=== PATIENT | female | born 2000 | race Two or more races ===

== ENCOUNTER 2019-12-05 12:47 | Emergency (ER) | payer OTHER ==
[2019-12-05] MEDS ORDERED: PREDNISONE 20 MG TABLET PO ONE (14:34)
[2019-12-05] MEDS ORDERED: IPRATROPIUM/ALBUTEROL 0.5-2.5 MG/3 ML AMPUL NEB ONE (14:34)
[2019-12-05] MEDS ORDERED: LIDOCAINE 1% INJ-PF (10 MG/ML) 30 ML SDV INJ ONE (14:34)
[2019-12-05] MEDS ORDERED: BENZONATATE 100 MG CAPSULE PO ONE (14:35)
[2019-12-05 15:06] LABS: ABSOLUTE EOSINOPHILS # (AUTO) 0.3 10^3/uL (0.0-0.6); ABSOLUTE LYMPHOCYTES (AUTO) 1.8 10^3/uL (0.5-4.7); ABSOLUTE MONOCYTES (AUTO) 0.5 10^3/uL (0.1-1.4); ABSOLUTE NEUT (AUTO) 3.8 10^3/uL (1.7-8.2); BASOPHILS % (AUTO) 0.7 % (0-2); EOSINOPHILS % (AUTO) 3.9 % (0-6); HEMATOCRIT 38.5 % (36.0-47.0); HEMOGLOBIN 13.3 g/dL (12.0-15.5); LYMPHOCYTES % (AUTO) 27.7 % (13-45); MEAN CORPUSCULAR HEMOGLOBIN 29.6 pg (27.0-33.4); MEAN CORPUSCULAR HGB CONC 34.5 g/dL (32.0-36.0); MEAN CORPUSCULAR VOLUME 86 fl (80-97); MONOCYTES % (AUTO) 8.1 % (3-13); PLATELET COUNT 249 10^3/uL (150-450); RED BLOOD COUNT 4.49 10^6/uL (3.72-5.28); RED CELL DISTRIBUTION WIDTH 13.3 % (11.5-14.0); SEGMENTED NEUTROPHILS % (AUTO) 59.6 % (42-78); TOTAL CELLS COUNTED % (AUTO) 100 %; WHITE BLOOD COUNT 6.5 10^3/uL (4.0-10.5)
--- NOTE | 2019-12-05 15:23 | RADIOLOGY REPORT (SQ) ---
EXAM DESCRIPTION: CHEST SINGLE VIEW IMAGES COMPLETED DATE/TIME: 12/05/2019 3:06 pm REASON FOR STUDY: Uncontrollable cough, wheezing COMPARISON: None. NUMBER OF VIEWS: One view. TECHNIQUE: Single frontal radiographic view of the chest acquired. LIMITATIONS: None. FINDINGS: LUNGS AND PLEURA: No opacities, masses or pneumothorax. No pleural effusion. MEDIASTINUM AND HILAR STRUCTURES: No masses. Contour normal. HEART AND VASCULAR STRUCTURES: Heart normal in size. Normal vasculature. BONES: No acute findings. HARDWARE: None in the chest. OTHER: No other significant finding. IMPRESSION: NO SIGNIFICANT RADIOGRAPHIC FINDING IN THE CHEST. TECHNICAL DOCUMENTATION: JOB ID: [id number] 2010 [employer]- All Rights Reserved Reading location - IP/workstation name: [email or web address]
--- NOTE | 2019-12-05 15:27 | ER Document Report ---
Entered by MARIS HAMLIN SCRIBE 12/05/19 1442 Acting as scribe for:KATHARINE MAST MD ED Respiratory Problem - General Chief Complaint: Cough Stated Complaint: COUGH,CONGESTION Time Seen by Provider: 12/05/19 14:19 Mode of Arrival: Ambulatory Information source: Patient Notes: This 19-year-old female patient presents to the emergency department today with complaints of nasal congestion, cough, and shortness of breath. Patient states she was seen at an urgent care x2 days ago and she was diagnosed with a sinus infection and was discharged home with amoxicillin and Mucinex. Patient states she has taken "7 asthma treatments" which she further describes as albuterol breathing treatments which have not helped her breathing. Patient states she is coughing up green sputum and blowing her nose which also was green in color. Patient denies any fevers or wheezing. - Related Data Allergies/Adverse Reactions: No Known Allergies Allergy (Verified 12/05/19 14:10) Past Medical History - General Information source: Patient - Social History Smoking Status: Never Smoker Cigarette use (# per day): No Frequency of alcohol use: None Drug Abuse: None Occupation: unemployed Lives with: Family Family History: Reviewed & Not Pertinent Pulmonary Medical History: Reports: Hx Asthma Review of Systems - Review of Systems Constitutional: No symptoms reported EENT: See HPI, Nose congestion Cardiovascular: No symptoms reported Respiratory: See HPI, Cough, Short of breath, Wheezing Gastrointestinal: No symptoms reported Genitourinary: No symptoms reported Female Genitourinary: No symptoms reported Musculoskeletal: No symptoms reported Skin: No symptoms reported Hematologic/Lymphatic: No symptoms reported Neurological/Psychological: No symptoms reported -: Yes All other systems reviewed and negative Physical Exam - Vital signs Vitals: Temp Pulse Resp BP Pulse Ox 98.7 F 94 16 127/74 H 98 12/05/19 12:52 12/05/19 12:52 12/05/19 12:52 12/05/19 12:52 12/05/19 12:52 - Notes Notes: Physical Exam: General: Alert, appears well. HEENT: Normocephalic. Atraumatic. PERRL. Extraocular movements intact. Oropharynx clear. Neck: Supple. Non-tender. Respiratory: No respiratory distress. Faint expiratory wheezing on the left, harsh bronchitic sounding cough. Cardiovascular: Regular rate and rhythm. Abdominal: Obese. Non-tender. No distension. Normal Bowel Sounds. Back: No gross abnormalities. Extremities: Moves all four extremities. Upper extremities: Normal inspection. Normal ROM. Lower extremities: Normal inspection. No edema. Normal ROM. Neurological: Normal cognition. AAOx4. Normal speech. Psychological: Normal affect. Normal Mood. Skin: Warm. Dry. Normal color. Course - Re-evaluation Re-evalutation: 12/05/19 15:50 Patient received a nebulizer treatment with DuoNeb and lidocaine mixed in it. She states that this did make her breathing feel much better and helped her reduce her coughing. She still does have frequent dry cough, but it is suppressed some and it is a less violent type cough. There is no definite wheezing heard at this time. I suspect this is only viral bronchitis in a patient who has asthma. - Vital Signs Vital signs: Temp Pulse Resp BP Pulse Ox 98.7 F 94 16 127/74 H 98 12/05/19 12:52 12/05/19 12:52 12/05/19 12:52 12/05/19 12:52 12/05/19 12:52 - Laboratory Result Diagrams: 12/05/19 14:55 12/05/19 14:55 Laboratory results interpreted by me: 12/05/19 14:55 Sodium 135.7 L Carbon Dioxide 20 L ALT 40 H - Diagnostic Test Radiology reviewed: Image reviewed, Reports reviewed Discharge - Discharge Clinical Impression: Viral upper respiratory tract infection with cough, Bronchitis with bronchospasm Condition: Stable Disposition: HOME, SELF-CARE Additional Instructions: Bronchitis with Bronchospasm (Wheezing): You have bronchitis with bronchospasm (wheezing). Sometimes people develo p wheezing with a chest cold. This occurs either because of an underlying tendency toward asthma or because the virus itself irritates the bronchial tubes. This irritation causes cough, shortness of breath, and wheezing. Emergency treatment of bronchospasm may include adrenaline shots or bron chodilator aerosol. You may feel lightheaded and have a rapid pulse for an hour or two. Rest and get plenty of fluids. At home, we'll treat you with a bronchodilator inhaler. Corticosteroids may be required for some patients. Until you recover, avoid chemical fumes, dusts, pollens, and exercising in very cold or dry air. If you smoke, stop now! Most cases of bronchitis get better without antibiotics. We prescribe antibiotics when we believe bacteria are damaging your airways, or if there's high risk the bronchitis will worsen into pneumonia. Increase your fluid intake. A cool mist humidifier may make your lungs more comfortable. An expectorant (cough medicine that loosens phlegm) can help. Repeated episodes of bronchitis and bronchospasm may result in lung damage -- for example, chronic bronchitis, recurrent pneumonias, or emphysema. If you develop a fever, increased wheezing, chest pain, or severe shortness of breath, you should contact the doctor immediately. Continue the amoxicillin that was prescribed earlier this week. Continue using your nebulizer as needed for wheezing. You may continue the Mucinex as long it does not have dextromethorphan(DM) with it. Start the prednisone as prescribed tomorrow. You are given today's dose here in the emergency room. Take the Tessalon Perles as prescribed to help suppress your cough. Try taking the generic version of Delsym DM for additional cough suppression. Drink plenty of fluids, get plenty of rest, try to limit talking. Follow-up with your primary care provider if not getting better over the next several days. RETURN TO THE EMERGENCY ROOM IF ANY NEW OR WORSENING SYMPTOMS. Prescriptions: Prednisone [Deltasone 10 mg Tablet] 10 mg PO ASDIR PRN #21 tablet PRN Reason: Benzonatate [Tessalon Perles 100 mg Capsule] 100 mg PO ASDIR PRN #30 capsule PRN Reason: I personally performed the services described in the documentation, reviewed and edited the documentation which was dictated to the scribe in my presence, and it accurately records my words and actions.
[2019-12-05 15:28] LABS: ALBUMIN 4.5 g/dL (3.5-5.0); ALKALINE PHOSPHATASE 79 U/L (38-126); ANION GAP 9 (5-19); ASPARTATE AMINO TRANSFERASE 27 U/L (14-36); BILIRUBIN,TOTAL 0.4 mg/dL (0.2-1.3); BLOOD UREA NITROGEN 8 mg/dL (7-20); CALCIUM 9.6 mg/dL (8.4-10.2); CARBON DIOXIDE 20 mmol/L (22-30); CHLORIDE 107 mmol/L (98-107); GLUCOSE 102 mg/dL (75-110); POTASSIUM 4.5 mmol/L (3.6-5.0)
[2019-12-05 15:57] VITALS: BP 112/65
== END 2019-12-05 16:14 | disposition home or self-care (01) ==
LOC: ER 12:47
DX: J45.909 Unspecified asthma, uncomplicated (principal); J32.9 Chronic sinusitis, unspecified; B97.89 Other viral agents as the cause of diseases classified elsewhere; R05 Cough; R09.81 Nasal congestion; R06.02 Shortness of breath; Z79.899 Other long term (current) drug therapy
CPT/HCPCS: 94640; 99283; 36415; 84703; 85025; 80053; 71045; J3490; J7512; J7620